=== PATIENT | female | born 1995 | race Caucasian/White ===

== ENCOUNTER 2025-05-11 18:27 | Observation (INO) | payer MEDICAID, OTHER ==
[~2025-05-11] VITALS: Ht 152.4 cm; Wt 63.5 kg
--- NOTE | 2025-05-11 19:15 | DVH ---
EXAM: US BIOPHYSICAL PROFILE HISTORY: decreased movement COMPARISON: None TECHNIQUE: Transabdominal real time sands scale, color, and doppler evaluation. Permanent images are maintained in the patient record. FINDINGS: Normal biophysical profile score 8/8. Cephalic positioning. Posterior placenta. Amniotic fluid ind ex measures 13.2 cm. Normal cardiac heart rate measures 151 beats per minute. No placenta previa or abruption. IMPRESSION: 1. Normal biophysical profile score 8/
--- NOTE | 2025-05-11 19:34 | DVHDS2 ---
Physician Discharge Progress N Final Diagnosis: IUP at 33w3d Not in labor Nausea/vomiting resolved Problems List: (1) Nausea and vomiting during (2) 33 weeks gestation of Operations or Procedures: Operations or Procedures SUBJECTIVE Wanda Johnson is a 29 yo with IUP at 33w3d presenting for nausea/vomiting x 3 days Patient states that three days ago, she began feeling nauseous. She was vomiting mostly at night. Today; however, she has been throwing up every time she has attempted to eat food or drink water. Denies any contractions, denies leaking fluid, and denies vaginal bleeding. States that her baby is moving, but it feels slightly less than normal. She did not do kick counts PNC: good, with Dr. Pineda Prev Med Hx: denies Prev Surg Hx: surgery on L leg to remove fatty tissue and surgery on L ribcage to remove extra cartilage Review of Systems: Neuro: No complaints Heart: No complaints Lungs: No complaints GI: Nausea x 3 days : No complaints Skin: No complaints Extremities: No complaints OBJECTIVE VSS FHR: Baseline: 150 Variability: Moderate Accelerations: Present Decelerations: Absent Category: 1 UCs: occasional Neuro: A&O x4. Affect appropriate Heart: Regular rate and rhythm Lungs: Clear bilaterally GI: Gravid. No tenderness Skin: Dry and intact. No rashes or lesions Extremities: Cap refill WNL. BPP: 04/06 ASSESSMENT 29 year old with IUP at 33w3d Category 1 tracing Nausea/Vomiting PLAN -Start IV and bolus 2 liters of LR -Give zofran and pepcid PRN for nausea and heartburn -Draw CMP to assess electrolyte status and correct as needed -SVE discussed and performed with consent, as some UCs noted on tracing. -Gave patient PO water, crackers, and jello. Patient did not vomit and states she feels much better. -Discussed labor precautions and kick counts. Discussed home care for nausea/vomiting and importance of hydration and eating frequent, small meals. Answered all patient questions and concerns. Patient verbalizes understanding. -Patient to call primary provider tomorrow to reschedule appointment Other Interventions Other Interventions EXAM: US BIOPHYSICAL PROFILE ORDERING PHYSICIAN: JATIN ZAVALETA DO PROCEDURE(s): BPP - BIOPHYSICAL PROFILE REASON: decreased movement ORDER NUMBER(s): [id number], ACCESSION NUMBER(s): [id number] HISTORY: decreased movement COMPARISON: None TECHNIQUE: Transabdominal real time sands scale, color, and doppler evaluation. Permanent images are maintained in the patient record. FINDINGS: Normal biophysical profile score 8/8. Cephalic positioning. Posterior placenta. Amniotic fluid index measures 13.2 cm. Normal cardiac heart rate measures 151 beats per minute. No placenta previa or abruption. IMPRESSION: 1. Normal biophysical profile score 8/8 Condition on Discharge: Good Disposition: Home Discharge Instructions: Activity: No Restrictions, As Tolerated Follow Up/Referral: Patient to call her primary MD tomorrow, as she missed her appointment today 05/11 Medications: No medication change Follow Up Care: Discharge Statement: "Patient was advised to return to the ER or call 911 if any headaches, dizziness, shortness of breath, chest pain, abdominal pain, bleeding, fevers, or worsening of medical condition. Patient was counseled about treatment plan, medications, possible side effects, patientverbalized understanding. All questions were answered to the best of my ability. This discharge took greater then 30 minutes in planning, reviewing documentation, counseling the patient, and discussing with other team members." Visit Coding OBGYN Date of Service: May 11, 2025 Billing Provider: MAURO SAAVEDRA CNM [employer] Common Visit Codes: 43436-FHHUXJV OBS CARE (HIGH) [employer] Procedure Codes: 43755-12- NON-STRESS TEST MAURO SAAVEDRA CNM May 11, 2025 19:34
[2025-05-11] MEDS: ONDANSETRON HCL 4 MG/2 ML VIAL IV ONE (20:08)
[2025-05-11] MEDS: LACTATED RINGER'S 1,000 ML IV SCH (20:08)
[2025-05-11 21:05] LABS: Alanine Aminotransferase 10 U/L (7-40); Albumin 4.0 g/dL (3.2-4.8); Alkaline Phosphatase 82 U/L (46-116); Anion Gap 18 (5-15); Bilirubin, Total 0.8 mg/dL (0.2-1.0); Calcium 8.9 mg/dL (8.7-10.4); Carbon Dioxide 20 mmol/L (20-31); Chloride 99 mmol/L (98-107); Glucose 94 mg/dL (74-106); Sodium 137 mmol/L (136-145); Total Protein 6.8 g/dL (5.7-8.2)
[2025-05-11 21:14] LABS: BUN/Creatinine Ratio 8.6 (10.0-20.0); Blood Urea Nitrogen < 5 mg/dL (9-23); Potassium 3.2 mmol/L (3.5-5.1)
[2025-05-11] MEDS ORDERED: PANTOPRAZOLE 40 MG/10 ML VIAL INJ IV ONE (21:15)
[2025-05-11] MEDS: FAMOTIDINE (10MG/ML) 2ML VL IV ONE (21:37)
[2025-05-11] MEDS: POTASSIUM CHL 20 Meq TABLET PO ONE (21:40)
[2025-05-11] MEDS ORDERED: FAMOTIDINE (10MG/ML) 2ML VL IV ONE (21:45)
== END 2025-05-11 22:24 | disposition home or self-care (01) ==
LOC: EDBD 18:27 → LDRP 18:27
PROVIDERS: ADMIT Obstetrics & Gynecology; ATTEND Obstetrics & Gynecology
DX: O36.8130 Decreased fetal movements, third trimester, not applicable or unspecified (principal); O21.2 Late vomiting of pregnancy; Z3A.33 33 weeks gestation of pregnancy; Z98.890 Other specified postprocedural states
CPT/HCPCS: 36415; 59025; 76819; 80053; 81002; 94760; 96361; 96374; 96375; G0378; J2405; J3490; 96360